=== PATIENT | female | born 1985 | race Caucasian/White ===

== ENCOUNTER 2020-03-07 08:45 | Emergency (ER) | payer OTHER, SELFPAY ==
[2020-03-07 09:03] VITALS: BP 101/71; PULSE 68; RESP 18; TEMP 36.6; O2SAT 100
--- NOTE | 2020-03-07 09:16 | ED.EAR ---
HPI - Ear Problem General Chief complaint: Ear Stated complaint: Ear Pain Time Seen by Provider: 03/07/20 09:03 Source: patient and RN notes reviewed Mode of arrival: ambulatory Limitations: no limitations History of Present Illness HPI Narrative: Patient presents today complaining of pain and tenderness behind the left ear since yesterday. Denies any additional symptoms. States she does not have pain inside her ear. No treatment decreased hearing or drainage from the ear. Pain increases when she moves her head from side to side. Currently rates her pain 7/10 and has been taking Tylenol without much relief. MD Complaint: ear pain Related Data Home Medications Medication Instructions Recorded Confirmed amlodipine 03/07/20 carvedilol 03/07/20 crisaborole [Eucrisa] TOPICAL 03/07/20 escitalopram oxalate mg 03/07/20 fluticasone propionate INTRANASAL 03/07/20 losartan 03/07/20 metformin mg PO 03/07/20 spironolactone 03/07/20 Allergies Allergy/AdvReac Type Severity Reaction Status Date / Time lisinopril Allergy Severe Cough Verified 03/07/20 09:07 red dye Allergy Unknown RASH AND Verified 03/07/20 09:07 SWELLING AROUND LIPS Review of Systems Review of Systems: Narrative: CONSTITUTIONAL: Denies body aches, fever, chills, or sweats. EYES: Denies visual changes, redness, or discharge. ENT: Denies rhinorrhea, congestion, sore throat, or otalgia. Pain behind left ear CARDIOVASCULAR: Denies chest pain, palpitations, or edema. RESPIRATORY: Denies cough or dyspnea. GASTROINTESTINAL: Denies abdominal pain, nausea, vomiting, or diarrhea. GENITOURINARY: Denies dysuria or hematuria. SKIN: Denies rash, itching, or wounds. MUSCULOSKELETAL: Denies back pain, joint pain, or myalgia. NEUROLOGIC: Denies headache, numbness, tingling, or weakness. PSYCH: Denies depression or anxiety. [facility] Past Medical History Medical History (Updated 03/07/20 @ 09:25 by Deedee Macias, AUGUSTUS, [place]) Anxiety CHF (congestive heart failure) Hypertension PCOS (polycystic ovarian syndrome) Surgical History Surgical History (Updated 03/07/20 @ 09:25 by Deedee Macias, AUGUSTUS, BC) Hx of tonsillectomy Comments At time of signature, I have reviewed and agree with nursing past medical, surgical, social and family history unless otherwise noted. Please see nursing chart for further information. There is no relevant family history pertinent to the presenting complaint Exam Narrative: Exam Narrative: GENERAL: Well-appearing, well-nourished, and in no acute distress. HEAD: Normocephalic, atraumatic. EYES: EOMI. No redness or drainage. Conjunctivae normal. ENT: Mucous membranes pink and moist. Nares clear. No rhinorrhea. TMs normal bilaterally. NECK: Normal AROM. Supple. Tenderness to left postauricular area, measuring ~3x3cm. There is no fluctuance or erythema. No deformity of the external ear. CHEST: No respiratory distress. EXTREMITIES: Normal range of motion. No edema. SKIN: Warm, dry, no rash. Capillary refill normal. Normal skin turgor. NEURO: No focal deficits. Alert and oriented x3. Gait steady. PSYCH: Normal affect. No signs of depression or anxiety. Course Course Emergency Course: Pain likely related to lymphadenitis. TM normal. No erythema or edema in affected area. Likelihood of mastoiditis is low, but will cover with Augmentin for possible bacterial infection. Vital Signs Vital signs: Vital Signs Temperature 97.9 F 03/07/20 09:03 Pulse Rate 68 03/07/20 09:03 Respiratory Rate 18 03/07/20 09:03 Blood Pressure 101/71 03/07/20 09:03 Pulse Oximetry 100 03/07/20 09:03 Temperature 97.9 F 03/07/20 09:03 Pulse Rate 68 03/07/20 09:03 Respiratory Rate 18 03/07/20 09:03 Blood Pressure 101/71 03/07/20 09:03 Pulse Oximetry 100 03/07/20 09:03 Reviewed Medical Decision Making Differential Diagnosis Differential Diagnosis: Otitis media, otitis externa, ruptured TM, ser
== END 2020-03-07 09:26 | disposition home or self-care (01) ==
PROVIDERS: Emergency Provider Nurse Practitioner
DX: R59.9 Enlarged lymph nodes, unspecified (principal); F41.9 Anxiety disorder, unspecified; I11.0 Hypertensive heart disease with heart failure; I50.9 Heart failure, unspecified; E28.2 Polycystic ovarian syndrome
CPT/HCPCS: 99213; G0463

== ENCOUNTER → 2020-08-28 16:52 | Outpatient (CLI) | payer OTHER, SELFPAY ==
--- NOTE | ~2020-08-28 | XR_ITS ---
EXAMINATION: XR knee LT 2V, XR knee RT 2V DATE: 08/28/2020 18:39 INDICATION: Multiple joint pain and fatigue TECHNIQUE: 1. Weight bearing anteroposterior and flexed lateral views of the left knee were obtained. 2. Weight bearing anteroposterior and flexed lateral views of the right knee were obtained. COMPARISON: None. FINDINGS: There appears to be some lateral subluxation of the patellae at both knees but this would be definiti vely assessed with sunrise views. Alignment is otherwise normal at both kidneys. No fractures. Joint spaces appear relatively preserved in all 3 compartments of both knees. Small marginal osteophytes ar e seen in the bilateral lateral and patellofemoral compartments. Soft tissues are unremarkable. No kn ee joint effusions. IMPRESSION: 1. Minimal osteoarthritis in the lateral and patellofemoral compartments of both knees. Reviewed, dictated and finalized at location A. N FACTORS ENGINEER IMPRESSION: 1. Minimal osteoarthritis in the lateral and patellofemoral compartments of bot h knees.
--- NOTE | ~2020-08-28 | XR_ITS ---
EXAMINATION: XR hip LT min 2V DATE: 08/28/2020 18:39 INDICATION: Left hip pain TECHNIQUE: Anteroposterior and frog-leg lateral views of the left hip were obtained. COMPARISON: None. FINDINGS: Alignment is normal. No fracture or suspected avascular necrosis. Left hip joint space appears normal . IUD projects in expected location of the central pelvis. IMPRESSION: 1. Normal left hip. 2. IUD. Reviewed, dictated and finalized at location A. OR WEB SERVICES DEVELOPER IMPRESSION: 1. Normal left hip. 2. IUD.
--- NOTE | ~2020-08-28 | XR_ITS ---
EXAMINATION: XR sacroiliac joints min 3V DATE: 08/28/2020 18:39 INDICATION: Multiple joint pain and fatigue. TECHNIQUE: AP and left and right oblique views of the sacroiliac joints were obtained. COMPARISON: None. FINDINGS: Mild nonuniform joint space narrowing at the bilateral sacroiliac joints with mild subarticular scler osis but no evident erosions to suggest inflammatory sacroiliitis. Sacral arches are intact. No fract ures. IUD projects over the central pelvis. IMPRESSION: 1. Mild bilateral sacroiliac osteoarthritis. 2. IUD. Reviewed, dictated and finalized at location A. H CLUB AGENT
--- NOTE | ~2020-08-28 | XR_ITS ---
EXAMINATION:XR_CERV2-3V_CR DATE: 08/28/2020 18:39 INDICATION: Multiple joint pain. Fatigue. TECHNIQUE: AP, lateral, lateral swimmers and odontoid views of the cervical spine are provided. COMPARISON: None FINDINGS: Mild kyphosis in the lower cervical spine with straightening of the mid to upper cervical spine. Vert ebral body and disc heights are normal. Odontoid is intact. Normal atlantoaxial interval. Mild osteo arthritis at the articulations of the lateral masses of C1 and C2 as well as at a few of the cervical uncovertebral joints. Prevertebral soft tissues are normal. IMPRESSION: 1. Minimal cervical spondylosis. Reviewed, dictated and finalized at location A. MACHINERY INSPECTOR
--- NOTE | ~2020-08-28 | XR_ITS ---
EXAMINATION: XR hand LT 2V, XR hand RT 2V DATE: 08/28/2020 18:39 INDICATION: Multiple joint pain and fatigue. TECHNIQUE: 1. Posteroanterior and lateral views of the left hand were obtained. 2. Posteroanterior and lateral views of the right hand were obtained. COMPARISON: None. FINDINGS: Alignment is normal at the bilateral hands and wrists. No fracture. Joint spaces are normal. No corti deedee erosions. Soft tissues are unremarkable. IMPRESSION: 1. Negative bilateral hand radiographs. Reviewed, dictated and finalized at location A. HT DIRECTOR IMPRESSION: 1. Negative bilateral hand radiographs.
--- NOTE | ~2020-08-28 | XR_ITS ---
EXAMINATION: XR foot LT 2V, XR foot RT 2V DATE: 08/28/2020 18:39 INDICATION: Multiple joint pain and fatigue. TECHNIQUE: 1. Dorsoplantar and lateral views of the left foot were obtained. 2. Dorsoplantar and lateral views of the right foot were obtained. COMPARISON: None. FINDINGS: Alignment is normal at both feet. No fractures. Mild osteoarthritis at the bilateral first metatarsop halangeal joints as well as few of the bilateral tarsal metatarsal and interphalangeal joints. Multip le enthesophytes at the bilateral feet including moderate sized bilateral Achilles and plantar calcan eal spurs, small enthesophytes at the base of several of the proximal phalanges and along the dorsal aspect multiple tarsal bones in the mid and hindfoot. Bilateral os trigonum, large on the right and s mall on the left. Soft tissues are unremarkable. IMPRESSION: 1. Degenerative skeletal changes including mild polyarticular osteoarthritis in the bilateral mid and forefeet and prominent scattered enthesophytes throughout both feet. Reviewed, dictated and finalized at location A. RVISOR WOUND IMPRESSION: 1. Degenerative skeletal changes including mild polyarticular osteoarthritis in the bilateral mid and forefeet and prominent scattered enthesophytes throughou t both feet.
== END ==
DX: M47.898 Other spondylosis, sacral and sacrococcygeal region (principal); M25.561 Pain in right knee; M25.562 Pain in left knee; Z97.5 Presence of (intrauterine) contraceptive device
CPT/HCPCS: 72040; 72202; 73120; 73502; 73560; 73620

== ENCOUNTER 2023-01-01 14:58 | Outpatient (CLI) | payer OTHER, SELFPAY ==
--- NOTE | ~2023-01-01 | XR_ITS ---
EXAM: XR hip RT min 2V DATE: 01/01/2023 15:23 HISTORY: Joint pain; hx of OA and psoriatic arthritis . COMPARISON: None available. FINDINGS: Normal mineralization. No fracture or dislocation. No lytic or blastic lesion. Sclerosis, mild widening and the suggestion of early erosions in the right SI joint. Mild degenerative changes i n the pubic symphysis and right hip. No erosion or periosteal change. Soft tissues within normal limi ts. IMPRESSION: Right sacroiliitis. Mild right hip arthritis. Mild osteitis pubis. Reviewed, dictated and finalized at location K.
== END 2023-01-01 14:59 ==
PROVIDERS: PCP Physician Assistant Medical; Visit Provider Physician Assistant Medical
DX: M25.551 Pain in right hip (principal)
CPT/HCPCS: 73502

== ENCOUNTER 2024-03-11 05:42 | Emergency (ER) | payer MEDICARE, SELFPAY ==
[2024-03-11] VITALS (18 sets, daily range): BP systolic 130–149; BP diastolic 80–86; PULSE 60–79; RESP 14–22; TEMP 36.6; O2SAT 90–100
--- NOTE | ~2024-03-11 | CT_ITS ---
EXAMINATION: CT abdomen pelvis w con DATE: 03/11/2024 08:16 INDICATION: Upper abdominal tenderness. TECHNIQUE: Computed tomography (CT) of the abdomen and pelvis was performed with 100 mL Omnipaque 350 intravenous contrast. Automated exposure control and iterative reconstruction technique were employe d. The dose-length product was 1588.89 mGy-cm. COMPARISON: None. FINDINGS: The visualized portions of the lung bases demonstrate airspace opacities and volume loss in left lower lobe. No pleural effusion. The heart size is normal. No pericardial effusion. The liver i s normal. There are changes of cholecystectomy. The spleen, pancreas, adrenal glands, and kidneys are normal. There is an intrauterine device in expected position. There is a 3.3 cm uterine fibroid. The appendix is normal. There are no dilated loops of bowel. There are no pathologically enlarged lymph nodes. There is no ascites. There is severe lumbar spondylosis and mild thoracic spondylosis. IMPRESSION: 1. Left lower lobe airspace opacities with volume loss, consistent with atelectasis versus pneumonia. 2. Uterine fibroid. Reviewed, dictated and finalized at location A. IMPRESSION: 1. Left lower lobe airspace opacities with volume loss, consistent with atelect asis versus pneumonia. 2. Uterine fibroid.
--- NOTE | ~2024-03-11 | XR_ITS ---
EXAMINATION: XR chest 2V DATE: 03/11/2024 09:29 INDICATION: Cough and shortness of breath TECHNIQUE: PA and lateral views of the chest were obtained. COMPARISON: None FINDINGS: The lungs are clear with no focal airspace opacities, pulmonary edema, pleural effusion or pneumothor ax. The bandlike and subtle groundglass opacities in the left lower lobe seen on the prior CT are sym metric and are normal on the plain radiographs. The cardiomediastinal silhouette is normal. Mild thor acic spondylosis with bridging osteophytes at multiple levels consistent with diffuse idiopathic skel etal hyperostosis (DISH). IMPRESSION: 1. No evident acute cardiopulmonary disease. The opacity seen in the left lower lobe on the prior CT are indiscernible on the chest radiograph. Reviewed, dictated and finalized at location A.
[2024-03-11 06:08] LABS: BEDSIDEPREGUCG Negative
[2024-03-11 06:14] LABS: Add Urine Microscopic? NO; Appearance Urine Clear (Clear); Bilirubin Urine Negative (Negative); Blood Urine Negative (Negative); Color Urine Yellow (Yellow); Glucose Urine UA Negative (Negative); Ketones Urine Trace mg/dL (Negative); Leukocyte Esterase Ur Negative LEU/UL (Negative); Nitrate Urine Negative (Negative); Protein Urine Negative (Negative); Specific Grav Ur 1.024 (1.001-1.035); pH Urine 5.5 (5.0-9.0)
[2024-03-11 06:21] LABS: Basophils Absolute Auto 0.1 K/mm3 (0.0-0.1); Basophils Percent Auto 0.4 % (0.2-1.2); Eosinophils Absolute Auto 0.1 K/mm3 (0-0.3); Eosinophils Percent Auto 0.4 % (0-4.4); Hematocrit 44.5 % (37.0-47.0); Hemoglobin 15.4 g/dL (12.0-15.0); Immature Granulocyte Absolute 0.08 K/mm3 (0.00-0.031); Immature Granulocyte Percent A 0.5 % (0-0.5); Lymphocytes Absolute Auto 3.06 K/mm3 (0.9-3.2); Lymphocytes Percent Auto 18.6 % (18.3-44.2); Mean Corpuscular HGB Conc 34.6 g/dl (32-36); Mean Corpuscular Hemoglobin 29.8 pg (26-34); Mean Corpuscular Volume 86.2 fl (80-100); Monocytes Absolute Auto 1.3 K/mm3 (0.1-0.6); Monocytes Percent Auto 7.9 % (2.6-8.5); Neutrophils Absolute Auto 11.9 K/mm3 (1.3-6.7); Neutrophils Percent Auto 72.2 % (45.5-73.1); Platelet Count Result 295 k/mm3 (150-375); Red Blood Count 5.16 M/mm3 (4.2-5.4); White Blood Count 16.4 K/mm3 (4.5-10.0)
[2024-03-11 06:33] LABS: Alanine Aminotransferase 18 U/L (6-35); Albumin Level 4.7 g/dL (3.5-5.1); Anion Gap 14 mmol/L (4-12); Aspartate Amino Transferase 22 U/L (14-36); Blood Urea Nitrogen 17 mg/dL (7-17); Calcium 9.7 mg/dL (8.4-10.2); Carbon Dioxide 25 mmol/L (22-30); Chloride 99 mmol/L (98-107); Estimated CRCL calculation 125 ml/min; Estimated Glomerular Filt Rate > 60; Glucose 110 mg/dL (65-110); Potassium 3.8 mmol/L (3.4-5.0); Sodium 138 mmol/L (137-145)
[2024-03-11 06:34] LABS: Alkaline Phosphatase 74 U/L (38-126); Lipase 92 U/L (23-300)
--- NOTE | 2024-03-11 07:41 | ED.ABDPAIN ---
HPI - Abdominal Pain General Chief Complaint: Abdominal Pain Stated Complaint: abdominal pain Time Seen by Provider: 03/11/24 06:58 History of Present Illness HPI narrative: 38-year-old female with a history of hypertension, CHF, diabetes presenting with abdominal pain. Patient states that she has been struggling with URI symptoms for the last few days. She saw her PCP several days ago. She was started on an inhaler and steroids which have been minimally helpful. States that she still feels wheezy. States that about 7 hours ago she developed epigastric pain. States that it goes into her right upper quadrant. States that it seems to come and go in terms of intensity. She has had a prior cholecystectomy. Complains of some shortness of breath when she walks. No lower abdominal pain, nausea vomiting, diarrhea constipation, dysuria, leg swelling. Related Data Home Medications Medication Instructions Recorded Confirmed amlodipine 5 mg tablet 03/07/20 carvedilol 12.5 mg tablet 03/07/20 crisaborole 2 % topical ointment topical 03/07/20 (Eucrisa) escitalopram oxalate 10 mg tablet mg 03/07/20 fluticasone propionate 50 intranasal 03/07/20 mcg/actuation nasal spray,suspension losartan 100 mg tablet 03/07/20 metformin 750 mg tablet,extended mg PO 03/07/20 release 24 hr spironolactone 25 mg tablet 03/07/20 Allergies Allergy/AdvReac Type Severity Reaction Status Date / Time lisinopril Allergy Severe Cough Verified 03/07/20 09:07 red dye Allergy Unknown RASH AND Verified 03/07/20 09:07 SWELLING AROUND LIPS Review of Systems Review of Systems: All systems reviewed & are unremarkable except as noted in HPI and below PMFSH Past Medical History Medical History Anxiety CHF (congestive heart failure) Hypertension PCOS (polycystic ovarian syndrome) Surgical History Surgical History Hx of tonsillectomy Exam Narrative: GENERAL: Well-appearing, in no acute distress, pleasant cooperative HEAD: Normocephalic, atraumatic. EYES: PERRLA and EOMI. ENT: Nares clear, no rhinorrhea or epistaxis. Mucous membranes moist. NECK: Supple. CHEST: No respiratory distress. Wheezing bilaterally, saturating 98% on room air HEART: Regular rate and rhythm ABDOMEN: Soft, + right upper quadrant and epigastric tenderness without guarding or rebound EXTREMITIES: Normal range of motion. No edema. SKIN: Warm, dry, no rash. NEURO: No focal deficits. Alert and oriented x3. PSYCH: Normal mood and affect. Course Vital Signs Vital signs: Vital Signs Temperature 98 F 03/11/24 06:01 Pulse Rate 76 03/11/24 06:01 Respiratory Rate 16 03/11/24 06:01 Blood Pressure 141/82 H 03/11/24 06:01 Pulse Oximetry 97 03/11/24 06:01 Oxygen Delivery Room Air 03/11/24 06:01 Temperature 98 F 03/11/24 06:01 Pulse Rate 73 03/11/24 12:14 Respiratory Rate 20 03/11/24 12:14 Blood Pressure 130/82 03/11/24 12:14 Pulse Oximetry 97 03/11/24 12:14 Oxygen Delivery Room Air 03/11/24 08:00 MDM - Abdominal Pain MDM Narrative Medical decision making narrative: 38-year-old female presenting with epigastric pain in the setting of URI symptoms. Vitals are within normal limits. Saturating well on room air. She is pretty wheezy on exam, will order a breathing treatment. She is already on steroids. CT abdomen pelvis shows evidence of a pneumonia in the left lower lobe. Will start her on some antibiotics. Patient with a lot of improvement following the breathing treatment. She does still have some wheezing on exam and she continues to have a little bit of chest tightness so will go ahead and do an hour long treatment and give her her 1st dose of antibiotics. Patient feels significantly improved following the hour long breathing treatment. Her wheezing has resolved as well. Will send
--- NOTE | 2024-03-11 07:48 | ECG_ITS ---
Test Date: 2024-03-11 08:02:43 Measurements Intervals [place] Rate: 67 P: 42 CT: 160 QRS: 49 QRSD: 94 T: 13 QT: 369 QTc: 392 Interpretive Statements SINUS RHYTHM WITH SINUS ARRHYTHMIA WITHIN NORMAL LIMITS No previous ECG available for comparison Electronically Signed On 03-11-2024 12:53:01 CDT by Dwight Shelton M.D.
[2024-03-11] MEDS: ACETAMINOPHEN 500 MG TABLET 1000 MG PO (08:01)
[2024-03-11] MEDS: ALBUTEROL SULFATE NEB 2.5 MG/3 ML INH 5 MG INHALATION (08:20)
[2024-03-11] MEDS: IPRATROPIUM BR 0.02% INH SOLN 0.5 MG/2.5 ML VIAL INHALATION ×2 (08:20→10:30)
[2024-03-11 09:08] LABS: NT Pro B Type Natriuretic Pept 135 pg/mL (19.9-100)
[2024-03-11 09:11] LABS: Troponin I < 0.012 ng/mL (0.000-0.034)
--- NOTE | 2024-03-11 09:34 | ECG_ITS ---
Test Date: 2024-03-11 09:36:20 Measurements Intervals [employer] Rate: 63 P: 73 DC: 166 QRS: 31 QRSD: 101 T: 15 QT: 393 QTc: 404 Interpretive Statements SINUS RHYTHM NORMAL ECG Compared to ECG 03/11/2024 08:02:43 NO DIFFERENCE Electronically Signed On 03-11-2024 12:55:17 CDT by Dwight Shelton M.D.
[2024-03-11 09:36] LABS: Influenza A QL RT-PCR Negative (Negative); Influenza B QL RT-PCR Negative (Negative); RSV RNA, RT-PCR Negative (Negative); SARS-CoV-2 RNA PCR Negative (Negative)
[2024-03-11 10:08] LABS: Troponin I < 0.012 ng/mL (0.000-0.034)
[2024-03-11] MEDS: ALBUTEROL SULFATE NEB 2.5 MG/3 ML INH 10 MG INHALATION (10:30)
[2024-03-11] MEDS: DOXYCYCLINE HYCLATE 100 MG TABLET PO (10:35)
[2024-03-11] MEDS: AMOXICILLIN/CLAVULANATE K 875-125 MG TAB 1 TABLET PO (10:35)
== END 2024-03-11 12:16 | disposition home or self-care (01) ==
PROVIDERS: Emergency Medicine; Emergency Provider Emergency Medicine; PCP Nurse Practitioner Family
DX: J18.9 Pneumonia, unspecified organism (principal); J98.01 Acute bronchospasm; I11.0 Hypertensive heart disease with heart failure; I50.9 Heart failure, unspecified; Z20.822 Contact with and (suspected) exposure to COVID-19
CPT/HCPCS: 36415; 71046; 74177; 80053; 81003; 81025; 83690; 83880; 84484; 85025; 87637; 93005; 94640; 99284; A9270; Q9967

== ENCOUNTER 2025-05-18 14:42 | Emergency (ER) | payer MEDICARE, SELFPAY ==
--- NOTE | ~2025-05-18 | XR_ITS ---
EXAMINATION: XR knee LT min 4V, 05/18/2025 15:05 CDT HISTORY: left knee pain, felt pop COMPARISON: No comparisons available. Findings: No acute fracture or malalignment. Severe tricompartmental degenerative changes with small effusion Soft tissues unremarkable. Impression: No acute fracture or malalignment. Reviewed, dictated and finalized at location P. Impression: No acute fracture or malalignment.
--- NOTE | 2025-05-18 14:43 | ED_ITS ---
HPI - Extremity Injury (Lower) General Chief Complaint: Extremity Injury, Lower Stated Complaint: Left Knee Pain Time Seen by Provider: 05/18/25 14:43 Source: patient Mode of arrival: ambulatory Limitations: no limitations History of Present Illness HPI Narrative: Patient is a 39-year-old female who presents with left knee pain after stepping on the bed this morning and feeling a pop in her knee as she was standing up on her tiptoes. Reports pain to both front and back of knee. Reports pain increases with plantar flexion and dorsiflexion of foot. Has history of rheumatoid arthritis and psoriatic arthritis. Takes Tylenol every day and does have tramadol as needed. Related Data Home Medications ?Medication ?Instructions ?Recorded ?Confirmed ?Last Taken ?Type amlodipine 5 mg tablet 03/07/20 Unknown History escitalopram oxalate 10 mg tablet mg 03/07/20 Unknown History losartan 100 mg tablet 03/07/20 Unknown History spironolactone 25 mg tablet 03/07/20 Unknown History albuterol sulfate 90 mcg/actuation inhalation 05/18/25 Unknown History aerosol inhaler fenofibrate nanocrystallized 145 mg PO 05/18/25 Unkno wn History mg tablet rosuvastatin 10 mg tablet mg 05/18/25 Unknown History semaglutide 2 mg/dose (8 mg/3 mL) mg subcut 05/18/25 Unknown History subcutaneous pen injector (Ozempic) tramadol 50 mg tablet mg 05/18/25 Unknown History Allergies Allergy/AdvReac Type Severity Reaction Status Date / Time lisinopril Allergy Severe Cough Verified 05/18/25 14:44 Sulfa (Sulfonamide Allergy Intermediate Hives Verified 05/18/25 15:03 Antibiotics) red dye Allergy Unknown RASH AND Verified 05/18/25 14:44 SWELLING AROUND LIPS Review of Systems Review of Systems: All systems reviewed & are unremarkable except as noted in HPI and below Constitutional: Constitutional: Denies body ache(s), Denies chills, Denies fatigue, Denies fever(s), Denies headache(s), Denies malaise and Denies weakness Eyes: Eyes: Denies blurry vision, Denies irritation and Denies loss of vision ENT: Denies otalgia, Denies headache(s), Denies nasal discharge, Denies sinus pain and Denies sore throat Cardiovascular: Cardiovascular: Denies chest pain, Denies irregular heart r hythm and Denies dyspnea Respiratory: Respiratory: Denies dyspnea Gastrointestinal: Gastrointestinal: Denies abdominal pain, Denies melena, Denies hematochezia, Denies diarrhea, Denies nausea and Denies vomiting Musculoskeletal: Musculoskeletal: Denies back pain, Denies myalgias, Reports arthralgias and Reports joint swelling Integumentary/Breasts: Skin/Breast: Denies pruritus and Denies rash Neurologic: Denies headache(s), Denies loss of vision and Denies weakness Psychiatric: Psychiatric: Reports no additional psychiatric complaints Endocrine: Endocrine: Denies fatigue PMFSH Past Medical History Medical History Anxiety Hypertension CHF (congestive heart failure) PCOS (polycystic ovarian syndrome) Surgical History Surgical History Hx of tonsillectomy Comments At time of signature, agree with nursing past medical, surgical, social and family history. There is no relevant family history pertinent to the presenting complaint. Exam Const: General: cooperative, healthy appearing, comfortable, no acute distress and well nourished Nutritional Appearance: well nourished Orientation/consciousness: patient oriented x3 Limitations: no limitations HENMT: Head: normal to inspection, normocephalic and atraumatic Ears: hearing grossly normal bilaterally and external ears normal Face/Nose/Sinus: Normal external nose present, normal facial exam and face symmetric Face and sinus: normal facial exam and face symmetric Mouth: Yes lip normal Eyes: General: appearance normal, both eyes and all related structures Alignment and Position: alignment normal and position normal Periorbital: periorbital findings normal Eyelids: eyelids normal Pupils: Equal, round and reactive pupils present EOM: EOMs intact bilaterally Neck: Neck: normal visual inspection, full ROM and supple Chest: Chest palpation & inspection: normal inspection of the chest Resp: Effort & Inspection: normal respiratory effort and able to speak in complete sentences Auscultation: clear to auscultation bilaterally Cardio: Rate: regular rate Rhythm: regular rhythm Heart sounds: S1 normal heart sound present and S2 normal heart sound present GI: Inspection: normal to inspection Skin: General skin exam: normal color and no rashes or lesions noted Neuro: General: patient oriented x3 and moves all extremities Cranial nerves: Yes Equal, round and reactive pupils present Speech: normal speech Gait exam (Neuro): Normal gait present Extrem: General: normal to inspection, full ROM and no edema Left lower extremity: hip/thigh Details: normal to inspection and normal ROM; no tenderness and no swelling, knee Details: normal to inspection, tenderness Location: of the popliteal fossa and of the lateral joint line, swelling, normal ROM and knee ligament exam normal Details: anterior drawer test normal, posterior drawer test normal, valgus stress test normal and varus stress test normal; no ecchymosis, lower leg Details: normal to inspection; no tenderness and no localized swelling, ankle Details: normal to inspection and normal ROM; no tenderness, no swelling and achilles tendon exam normal and foot Details: normal capillary refill, normal to inspection and toes with normal ROM; no tenderness Psych: Appearance: grossly normal and well kempt Mental Status: mental status grossly normal Speech and movement: Normal speech and movement present Affect: normal affect Attitude: cooperative Thought process: Normal thought process present Course Course Emergency Course: Patient is aware of diagnosis, understands and agrees to treatment plan. Anticipatory guidance given. Patient agrees to follow-up as directed and is aware of reasons to seek care at the emergency department. Portions of this record may have been created with voice recognition software Level of Care: Express Care Visit Vital Signs Vital signs: Reviewed MDM - Extremity Injury (Lower) MDM Narrative Medical decision making narrative: Patient is able to bear weight and ambulate with pain. No overlying erythema or warmth. The L knee is without obvious asymmetry or deformity when comparing to the R. Fully extended knee, internal and external rotation. tender to palpate of the patella, + effusion. Nontender over the infrapatellar tendon.. Nontender over the medial or medial or lateral tibial plateaus. Nontender over the proximal fibular head. tender popliteal fossa and lateral joint line,. NO quadriceps tenderness. No laxity of the ACL, PCL, MCL, LCL. Distal motor and neurovascular status intact. Pt well hydrated appearing, in no respiratory distress, hemodynamically stable. Recommend supportive care. The patient is stable at time of discharge the clinical impression was discussed and the patient was given the opportunity to ask questions, which were addressed as completely as possible given the information available at present. Anticipatory guidance and return to care precautions were discussed and the importance of primary care follow-up was stressed and encouraged. The patient voiced understanding of the plan, indications to return, and the need for follow-up. Exam findings show no acute concerns or changes Patient is appropriate for outpatient treatment and follow-up. Differential Diagnosis Differential diagnosis: Likely acute internal derangement of knee and other (Knee effusion) Medical Records Attestation: I reviewed the patient's medical records. Imaging Data Radiologist's impression: EXAMINATION: XR knee LT min 4V, 05/18/2025 15:05 CDT HISTORY: left knee pain, felt pop COMPARISON: No comparisons available. Findings: No acute fracture or malalignment. Severe tricompartmental degenerative changes with small effusion Soft tissues unremarkable. Impression: No acute fracture or malalignment. Reviewed, dictated and finalized at location P. Discharge Plan Discharge Clinical Impression: Effusion, left knee Acute internal derangement of knee Qualifiers: Laterality: left Qualified Code(s): M23.92 - Unspecified internal derangement of left knee Patient Disposition: Home Condition: Stable Instructions: Swollen Knee Joint (ED) Additional Instructions: Xray showed no fracture. Minimize activities that aggravate the condition The RICE protocol. Follow the RICE protocol as soon as possible after your injury: Rest your knee by not walking on it. Ice should be immediately applied to keep the swelling down. It can be used for 20 to 30 minutes, three or four times daily. Do not apply ice directly to your skin. Compression dressings, bandages or trevor-wraps will immobilize and support your injured knee. Elevate your knee above the level of your heart as often as possible during the first 48 hours. Medication: For pain, you may take: Tylenol 650-1000mg by mouth every 4-6 hours. Do not exceed 4000mg in 24 hours. Please schedule a follow-up visit with your personal physician for further evaluation and treatment within 1week OR If your symptoms persist, change or worsen significantly before you can contact your personal physician then please, without delay, go to the emergency department for further evaluation. Patient Language: [place] Prescriptions: No Action amlodipine 5 mg tablet spironolactone 25 mg tablet losartan 100 mg tablet escitalopram oxalate 10 mg tablet albuterol sulfate 90 mcg/actuation HFA aerosol inhaler INHALATION rosuvastatin 10 mg tablet fenofibrate nanocrystallized 145 mg tablet PO Ozempic 2 mg/dose (8 mg/3 mL) pen injector SUBCUT tramadol 50 mg tablet Follow-up/Referrals: Lex,LUDIN Schumacher [Primary Care Provider, Unknown] - 3 Days Time of Disposition: 15:53
[2025-05-18 14:55] VITALS: BP 112/65; PULSE 63; RESP 16; TEMP 36.9; O2SAT 98
== END 2025-05-18 16:00 | disposition home or self-care (01) ==
PROVIDERS: Emergency Provider Nurse Practitioner Family; PCP Nurse Practitioner Family
DX: M25.462 Effusion, left knee (principal); M23.92 Unspecified internal derangement of left knee; I11.0 Hypertensive heart disease with heart failure; I50.9 Heart failure, unspecified; E28.2 Polycystic ovarian syndrome; F41.9 Anxiety disorder, unspecified; M06.9 Rheumatoid arthritis, unspecified; L40.50 Arthropathic psoriasis, unspecified
CPT/HCPCS: 73564; 99213; G0463